=== PATIENT | male | born 1955 | race Caucasian/White ===

== ENCOUNTER 2021-04-04 02:20 | Emergency (ER) | payer OTHER, SELFPAY ==
[2021-04-04 02:21] VITALS: BP 196/117; PULSE 92; RESP 18; TEMP 36.8; O2SAT 96; BMI 30.1
--- NOTE | 2021-04-04 02:36 | EKG12_ITS ---
Test Reason : CP Blood Pressure : / mmHG Vent. Rate : 091 BPM Atrial Rate : 091 BPM P-R Int : 214 ms QRS Dur : 118 ms QT Int : 392 ms P-R-T Axes : 050 -39 028 degrees QTc Int : 482 ms Sinus rhythm with 1st degree A-V block Left axis deviation Prolonged QT Abnormal ECG Confirmed by MERCEDES VICTORIA, BERNABE ([id number]), photography editor MICHELLE SUN ([id number]) on 04/08/2021 8:30:17 AM Referred By: JOSE Confirmed By:DARLINE LONG MD
--- NOTE | 2021-04-04 02:37 | ED.VIS.CHEST ---
HPI History of Present Illness Chief Complaint: Chest Pain Informant: patient Narrative Narrative: Patient presents with complaint of sternal pain. He states this started while he was pushing and pulling on a brush hog trying to get attached to the tractor. This happened in late afternoon or early evening. This was likely for 5:00. It just has not gone away. It does not really radiate. He has no nausea, vomiting, shortness of breath, pleuritic pain. He has not been lightheaded or dizzy. He was not diaphoretic with this. However, he states he thinks he had some diaphoresis this morning when he got out of the shower but he had no other symptoms. He also notes that he just got his third Covid vaccine about 3 days ago and has been having myalgias and symptoms from that. He is not sure if this is part of it or different. He is also had the same sternal pains before. Normally they occur when he is working hard such as doing bench press or lifting. He even will swim 30 laps when he has the pain and it does not change it. This is a similar pain. He did have a heart catheterization but it is approaching 10 years ago. He was told he had diseases somewhere between about 25 and 40%. He has had symptoms like this in the past. He did have a trip to [place] a few weeks ago. No leg pain or swelling. No pleuritic component. No cough shortness of breath. No hemoptysis. No history of DVT or PE in him or family members. He is on Coumadin. Nothing really makes his symptoms specifically better or worse. He does not feel ill but he has this discomfort that is concerning. [facility] Home Medications atorvastatin 10 mg PO QHS 03/23/16 [History Last Taken Unknown] diltiazem HCl 120 mg PO DAILY 03/23/16 [History Last Taken Unknown] dofetilide [Tikosyn] 500 mcg PO BID 03/23/16 [History Last Taken Unknown] magnesium oxide 400 mg PO TID 03/23/16 [History Last Taken Unknown] potassium chloride 10 meq PO BID 03/23/16 [History Last Taken Unknown] warfarin [Coumadin ([facility])] 7.5 mg PO DAILY 03/23/16 [History Last Taken Unknown] empagliflozin [Jardiance] 10 mg PO DAILY 04/04/21 [History Last Taken Unknown] semaglutide [Rybelsus] 14 mg PO DAILY 04/04/21 [History Last Taken Unknown] Allergy/AdvReac Type Severity Reaction Status Date / Time No Known Allergies Allergy Verified 04/04/21 02:26 Surgical History H/O cardiac radiofrequency ablation H/O right heart catheterization Social History Smoking Status: Never smoker ROS ROS ED Constitutional Constitutional ED: Denies fever(s) or subjective ENT ENT ED: Denies rhinorrhea or sore throat Cardiovascular Cardiovascular: Reports chest pain and other Details: See history of present illness. Patient takes Tikosyn and he thinks this is controlled his atrial fibrillation quite well for many months. ; Denies palpitations Respiratory/Chest Respiratory/Chest: Denies cough, dyspnea or sputum Gastrointestinal Gastrointestinal: Denies abdominal pain, diarrhea, nausea or vomiting Musculoskeletal Musculoskeletal: Reports arthralgias, myalgias and other Details: He has had some other arthralgias and myalgias since his third Covid shot. However they are improving. ; Denies back pain or neck pain Integumentary Denies rash Neurologic Neurologic: Denies weakness Psychiatric Psychiatric: Denies anxiety Hematologic/Lymphatic Hematologic/Lymphatic: Reports easy bleeding and easy bruising Allergic/Immunologic Allergic/Immunologic ED: Denies urticaria EXAM Physical Exam Const Vital Signs: 04/04/21 02:21 04/04/21 02:47 04/04/21 03:21 Temperature 98.3 F Temperature Source Oral Pulse Rate 92 82 Respiratory Rate 18 15 Blood Pressure 196/117 H 156/99 H Blood Pressure Mean 143 118 Pulse Ox 96 97 Oxygen Delivery Method Room Air Room Air Room Air 04/04/21 03:22 04/04/21 03:59 Temperature Temperature Source Pulse Rate 81 Respiratory Rate 22 H Blood Pressure 156/99 H 145/98 H Blood Pressure Mean 118 Pulse Ox 96 Oxygen Delivery Method Positive well nourished and well developed General Appearance ED: well developed and NAD HEENT Reports moist mucous membranes normocephalic Eyes EOMs intact bilaterally General Eye ED: Negative for scleral icterus Neck no JVD Chest Wall inspection of chest normal Chest Narrative: Mild soreness right at the midsternum. Resp normal respiratory effort Resp Narrative: Lungs are clear. There is no pain with deep breaths. Effort and Inspection: Negative for respiratory distress Auscultation: Negative for rales, rhonchi or wheezes Cardio regular rate, regular rhythm and no murmurs Rate: other Other Details: Although he has history of atrial fibrillation, he is in a sinus rhythm at this time. GI normal to inspection, nondistended, normoactive bowel sounds, soft to palpation and non-tender Back/Spine no CVA tenderness Extremity normal to inspection General Extremety ED: Negative for edema, pulses abnormal or tenderness General Extremity: Negative for edema or pulses abnormal Neuro Sensorium / Orientation: awake and alert Psych mental status grossly normal Skin no rashes or lesions noted Heart Score History: Slightly/Non-Suspicious ECG: Normal Age: >45 - <65 years Risk Factors: >/= 3 Risk Factors or History of CAD Troponin: </= Normal Limit Score: 3 MDM MDM MDM Narrative Medical decision making narrative: Patient CBC shows no marked abnormalities. INR is therapeutic at 2.0. Glucose is mildly elevated at 181. Troponin is negative. Troponin is negative after about 10 hours of symptoms. He also now states that he had some of the symptoms yesterday. This might overlap with the myalgias he has been having. He states in years past he had had vasospastic angina and this does not feel like that angina. Change in medicines stopped that. He feels well. He is comfortable going home and following up with his private physician and his airplane engineer. He does have a low heart score. He is beyond 8 hours from symptoms. We discussed the option of a delta but he is really already passed that point. Lab Data Attestation: I reviewed the patient's lab results. Labs: Laboratory Results - last 24 hr 04/04/21 04/04/21 04/04/21 02:27 02:27 02:27 WBC 9.5 RBC 5.36 Hgb 16.9 H Hct 48.8 MCV 91.0 MCH 31.5 MCHC 34.6 RDW Std Deviation 41.4 RDW Coeff of Juli 12.6 Plt Count 171 MPV 9.2 Immature Gran % (Auto) 0.400 Neut % (Auto) 64.0 Lymph % (Auto) 18.8 L [place] % (Auto) 13.4 H Eos % (Auto) 3.0 Baso % (Auto) 0.4 Absolute Neuts (auto) 6.1 Absolute Lymphs (auto) 1.78 Nucleated RBC % 0 PT 22.3 H INR 2.0 Sodium 138 Potassium 3.6 Chloride 104 Carbon Dioxide 27.0 Anion Gap 7 BUN 21 H Creatinine 0.84 Estim Creat Clear Calc 100.40 Est GFR (MDRD) Af Amer 119 Est GFR (MDRD) Non-Af 98 BUN/Creatinine Ratio 25.1 H Glucose 181 H Calcium 9.4 Troponin I High Sens 35 Radiography Diagnostic Testing: Radiology Impression Chest X-Ray 04/04/21 02:41 IMPRESSION: Degenerative changes, as described above. No demonstrated acute cardiopulmonary process. Electronically Signed: Kristina Perez MD at 3:27 EDT Tel , Service support , EKG Initial EKG: Comments: KG done for chest pain read by me shows normal sinus rhythm with first-degree AV block. No ectopy. No acute ST elevation or depression consistent with infarct or ischemia. DE interval is long. QRS duration is borderline. QTc is just borderline at 482 ms. Complexes overall looks similar to 23 March 2016 but he is not in atrial fibrillation now. Discharge Plan Triage Chief Complaint: Chest Pain ED Provider: Davide Abbott Dx/Rx/DC Orders Clinical Impression: Chest pain Instructions: ED Chest Pain, Uncertain Cause Prescriptions: No Action atorvastatin 10 MG tablet 10 mg PO QHS RF: 0 dofetilide [Tikosyn] 500 MCG capsule 500 mcg PO BID RF: 0 potassium chloride 10 MEQ tablet 10 meq PO BID RF: 0 diltiazem HCl 120 MG capsule,extended release 12 hr 120 mg PO DAILY RF: 0 warfarin [Jantoven] 7.5 MG tablet 7.5 mg PO DAILY RF: 0 magnesium oxide 400 MG tablet 400 mg PO TID RF: 0 Jardiance 10 mg Tablet 10 mg PO DAILY RF: 0 Rybelsus 14 mg Tablet 14 mg PO DAILY RF: 0 Referrals: Arie Szymanski MD [STAFF PHYSICIAN] - As soon as possible Disposition Disposition: Home, Self Care Discharge Date/Time: 04/04/21 03:59
--- NOTE | 2021-04-04 02:41 | RAD_ITS ---
STUDY: X-RAY CHEST REASON FOR EXAM: Male, 65 years old. Chest pain TECHNIQUE: Single AP portable view of the chest. COMPARISON: March 23, 2016 FINDINGS: The lungs are clear and expanded. There is no demonstrated pleural abnormality. Normal size heart. Normal mediastinum and mona. Normal visualized pulmonary arteries. There is atherosclerotic tortuosity of the aortic arch and descending thoracic aorta. There are diffuse degenerative changes of the visualized thoracic spine. Normal visualized ribs, clavicles, and shoulders. There is no demonstrated abnormality of the visualized soft tissue structures of the upper abdomen. RAD/Chest 1 View (Portable) IMPRESSION: Degenerative changes, as described above. No demonstrated acute cardiopulmonary process. Electronically Signed: Kristina Perez MD at 3:27 EDT Tel , Service support ,
[2021-04-04 02:42] LABS: Absolute Lymphocyte Count 1.78 X10^3/uL (0.83-4.51); Absolute Neutrophil Count 6.1 X10^3/uL (2.0-7.7); Basophil# 0.04 X10^3/uL; Basophil% 0.4 % (0-1); Eosinophil# 0.28 X10^3/uL; Hematocrit 48.8 % (40-54); Hemoglobin 16.9 g/dL (13.0-16.5); Lymphocyte # 1.78 X10^3/ul (0.83-4.51); Lymphocyte % 18.8 % (19-41); Mean Corp Hgb Conc 34.6 g/dL (32-36); Mean Corpuscular Hgb 31.5 pg (27.0-32.0); Mean Platelet Vol. 9.2 fl (6.2-12.0); Monocyte# 1.27 X10^3/uL; Monocyte% 13.4 % (0-10); NRBC Flagged by Analyzer 0 % (0-5); Neutrophil # 6.08 X10^3/uL (2.7-7.7); Platelet Count 171 K/mm3 (150-450); RBC Distribution Width CV 12.6 % (11.6-14.6); RBC Distribution Width SD 41.4 fl (35.1-43.9); Red Blood Count 5.36 M/mm3 (4.6-6.2); White Blood Count 9.5 K/mm3 (4.4-11.0)
[2021-04-04 02:50] LABS: Prothrombin Time (Protime)PT. 22.3 SECONDS (11.7-14.9)
[2021-04-04 02:56] LABS: Anion Gap 7 (5-15); BUN 21 mg/dL (7-18); BUN/Creat Ratio 25.1 RATIO (10-20); Calcium,Total 9.4 mg/dL (8.5-10.1); Chloride 104 mmol/L (98-107); Creatinine, Serum 0.84 mg/dL (0.70-1.30); EST Glomerular Filtration Rate 98 mL/min (>60); Est Glom Filt Rate - Afr Amer 119 mL/min (>60); Glucose 181 mg/dL (74-106); Potassium 3.6 mmol/L (3.5-5.1); Sodium Level 138 mmol/L (136-145); Troponin-I HS 35 pg/mL (3.0-78.0)
[2021-04-04 03:21] VITALS: BP 156/99; PULSE 82; RESP 15; O2SAT 97
[2021-04-04 03:22] VITALS: BP 156/99
[2021-04-04 03:59] VITALS: BP 145/98; PULSE 81; RESP 22; O2SAT 96
== END 2021-04-04 03:59 | disposition home or self-care (01) ==
PROVIDERS: Emergency Provider Emergency Medicine
DX: R07.89 Other chest pain (principal); I44.0 Atrioventricular block, first degree; I48.91 Unspecified atrial fibrillation; Z79.01 Long term (current) use of anticoagulants
CPT/HCPCS: 71045; 80048; 84484; 85025; 85610; 93005; 99283; A4216

== ENCOUNTER 2022-09-09 08:53 | Day surgery (SDC) | payer MEDICARE, OTHER, SELFPAY ==
[2022-09-09] MEDS: Lactated Ringers 1,000 ML 15 ML IV ×3 (08:35→14:04)
[2022-09-09 09:15] VITALS: BP 171/89; PULSE 75; RESP 16; TEMP 37; O2SAT 99; BMI 29.0
[2022-09-09 09:15] LABS: INR Fingerstick 1.5; Prothrombin Time Fingerstick 17.8 SEC (11.7-14.9)
[2022-09-09 09:34] LABS: International Normalized Ratio 1.2; Prothrombin Time (Protime)PT. 15.1 SECONDS (11.7-14.9)
--- NOTE | 2022-09-09 09:47 | HP.PCM_ITS ---
History and Physical Date of Admission: 09/09/22 Visit Reasons:?Hernia Chief Complaint: hernia Is patient in pain?: No Allergies tape adhesive Allergy (Mild, Uncoded 08/19/22 08:50) Rash Medications atorvastatin 10 mg tablet 10 mg PO QHS 03/23/16 [History Confirmed 04/04/21] diltiazem HCl 120 mg capsule,extended release 12 hr 120 mg PO DAILY 03/23/16 [History Confirmed 04/04/21] dofetilide 500 mcg capsule (Tikosyn) 500 mcg PO BID 03/23/16 [History Confirmed 04/04/21] magnesium oxide 400 mg (241.3 mg magnesium) tablet 400 mg PO TID 03/23/16 [History Confirmed 04/04/21] potassium chloride 10 mEq tablet,extended release(part/cryst) 10 meq PO BID 03/23/16 [History Confirmed 04/04/21] warfarin 7.5 mg tablet (Jantoven) 7.5 mg PO DAILY 03/23/16 [History Confirmed 04/04/21] semaglutide 14 mg tablet (Rybelsus) 14 mg PO DAILY 04/04/21 [History Confirmed 04/04/21] empagliflozin 25 mg tablet (Jardiance) 25 mg PO DAILY 08/19/22 [History Confirmed 08/19/22] PFSH Surgical History? H/O cardiac radiofrequency ablation H/O right heart catheterization Social History? Smoking Status:? Never smoker HPI HPI HPI: 66-year-old gentleman who presents for surgical consultation regarding Past medical history includes a history of atrial fibrillation cardiac ablation with paroxysmal atrial fibrillation.? He is on Tikosyn and warfarin.? He is a type II diabetic.? Recent hemoglobin A1c is 8.4 Patient has a symptomatic right inguinal hernia.? It is currently reducible.? He has had a remote open left inguinal herniorrhaphy and some intermittent discomfort in that area.? He is also very much aware that he has a small umbilical hernia which she has to repetitively reduce but has never become incarcerated. His medical presentation is complicated by paroxysmal atrial fibrillation and chronic Coumadin anticoagulation.? Type 2 diabetes. Recent laboratory demonstrates an albumin of 5 and a total calcium of 9.7 with a total bilirubin of 1.1.? Glucose was 114 and BUN 16 and creatinine 0.81.? Potassium was 3.7.? Fasting lipid panel demonstrated total cholesterol of 142 with an HDL of 38 and a non-HDL of 104 and a VLDL of 22 and an LDL of 82.? Triglycerides were 109.? At that time PT was 21.6 with an INR of 2.2.? Magnesium 2.1.? PSA 3.29.? Hemoglobin A1c 8.4. White blood cell count 8.44 with a hemoglobin of 17 and hematocrit of 47.1 and a platelet count of 185,000 ROS General General: No weight change, appetite, fatigue, colon cancer, breast cancer or weakness HEENT HEENT: No difficulty swallowing, eye injury, eye surgery, swollen glands or hoarseness Endo Endocrine: Yes diabetes mellitus; No thyroid disease, thyroid cancer, Hair loss, heat intolerance or cold intolerance Musc Musculoskeletal: No back problems, arthritis, rheumatoid arthritis, gout or joint pain Cardio Cardiovascular: Yes heart disease and atrial fibrillation; No murmur, pacemaker, high blood pressure, heart attack, heart stent, palpitations, shortness of breat with exertion or chest pain Psych Psychiatric: No depression, anxiety or hearing voices Resp Respiratory: No shortness of breath, No sleep apnea, No cough, No COPD, No asthma, No emphysema and No wheezing Gastro Gastrointestinal: No abdominal pain, No nausea or vomiting, No diarrhea, No cons tipation, No blood in stool, No acid reflux, No hemorrhoids, No ulcers, No gallbladder problem and No black,tarry stools Kj Hematologic: Yes blood thinners, No blood disorders, No bleeding, No anemia and No blood clots Neuro Neurologic: No system reviewed and no additional complaints, except as documented, No as per HPI, No abnormal gait, No abnormal hearing, No abnormal movements, No abnormal speech, No behavioral changes, No burning sensations, No confusion, No convulsions, No disequilibrium, No dizziness, No localized weakness, No frequent falls, No headache(s), No lack of coordination, No loss of vision, No memory loss, Yes numbness, No other visual disturbances, No radicular pain, No restless legs, No sensory deficit, No syncope, Yes tingling, No tremor(s), No weakness and No other Exam Const General: cooperative, healthy appearing, comfortable and no acute distress Nutritional Appearance: average body habitus Orientation: alert, awake and oriented x3 [facility] Head: normal to inspection Eyes General: appearance normal, both eyes and all related structures Neck Neck: normal visual inspection Chest Chest palpation & inspection: normal inspection of the chest Resp Effort & Inspection: normal respiratory effort Auscultation: clear to auscultation bilaterally Cardio Rate: regular rate Rhythm: regular rhythm GI Palpation: soft and no hepatosplenomegaly Auscultation: normal bowel sounds Other: Testicles are descended bilaterally.? Well-healed transverse incision left groin.? Some very mild fibrofatty fullness of the proximal left inguinal cord but I cannot detect any fascial defect or distinct hernia. Obvious right inguinal hernia likely indirect and reducible.? Right testicle otherwise unremarkable. Musc Cervical Spine: normal cervical lordosis Skin General: no rashes or lesions noted Neuro General: patient alert, patient awake and patient oriented x3 Extrem General: no calf tenderness Psych Appearance: grossly normal Assessment and Plan Assessment and Plan (1) Inguinal hernia of right side without obstruction or gangrene: ?Status:?Acute (2) Umbilical hernia without obstruction or gangrene: ?Status:?Acute (3) Atrial fibrillation: ?Status:?Acute (4) Chronic anticoagulation: ?Status:?Acute ?Plan: Very pleasant 66-year-old gentleman.? He has asymptomatic although not incarcerated right inguinal hernia likely indirect.? In addition he has a small umbilical hernia.? On my clinical examination he has had evidence of a remote open left inguinal herniorrhaphy and although there is some fibrofatty fullness of the cord I cannot detect a recurrent hernia on the left. I do propose for him a laparoscopic right inguinal herniorrhaphy with mesh and anticipate an incision at the umbilicus with a subsequent repair of that defect possibly with a Ventralex mesh.? I described technique, benefit, risk, alternatives. He is on warfarin anticoagulation we will have him hold that 3 days preoperatively. He did share with me that a PSA level that was just obtained yesterday was higher than previous values.? He has verbally discussed this with urology who recommends a laboratory recheck.? The patient will pursue that and then contact us regarding that value.? I have explained to the patient that I would be somewhat hesitant to do the laparoscopic retroperitoneal dissection if there was a chance that he would need to have a prostate surgery in the near future. We do tentatively have him scheduled for surgery in approximately 8 days.? He has had an opportunity to ask and have questions answered.? We will proceed as noted pending his PSA results. I very much appreciate the kind opportunity of assisting with his surgical care. Da Becerra M.D., F.A.C.S His PSA levels have normalized on recheck. He presents now for umbilical herniorrhaphy and laparoscopic right inguinal herniorrhaphy with mesh. No changes in presentation. We will proceed as noted. Da Becerra M.D., F.A.C.S.
--- NOTE | 2022-09-09 09:49 | DCINST_ITS ---
Discharge Instructions Procedure General Surgery Diet Discharge Diet: Light diet - advance as tolerated (if you have questions about your diet instructions, please talk to you doctor.) Activity Discharge Activity: May Not Drive (for 3-5 days or while taking narcotic pain medicine.) May shower in (days): 1 Lifting Restrictions: 10 pounds Dressing / Incision Call your doctor if your incision/area has: Continuous Slow Oozing, Sudden Increased Bleeding, Increased Pain/ Swelling, Increased Redness and Foul Smelling Discharge Call your doctor if you observe: Fever of 101 or Higher Suture Line Care: Avoid Pulling/Pushing and Avoid Pinching/Bending Additional Dressing/Incision Instructions:: Change or remove dressing in 4 days. Leave steri-strips in place for 1 week. Follow Up Care Please Follow Up With: Da Becerra MD When: Call [phone] to make an appointment to be seen in about 10 days. Barring any bleeding issues to you may resume your warfarin tomorrow evening September 10, 2022 Test Results: Test results from this visit will be discussed in further detail at your follow- up appointment, if applicable. Discharge Plan Admission Primary Reason for Your Visit: Right inguinal hernia and umbilical hernia Attending Provider: Da Becerra Primary Care Provider: Tim Ramos Discharge Orders/Prescriptions Prescriptions: New hydrocodone-acetaminophen 5-325 mg tablet 1 tab PO Q6H PRN (Reason: pain) 3 Days Qty: 10 0RF Continued Jardiance 25 mg tablet 25 mg PO DAILY atorvastatin 10 MG tablet 10 mg PO QHS dofetilide [Tikosyn] 500 MCG capsule 500 mcg PO BID potassium chloride 10 MEQ tablet 10 meq PO BID Label Comments: -WED TID, REMAINING DAYS BID diltiazem HCl 120 MG capsule,extended release 12 hr 120 mg PO DAILY warfarin [Jantoven] 7.5 MG tablet 7.5 mg PO DAILY Label Comments: LAST DOSE 08/24 magnesium oxide 400 MG tablet 400 mg PO TID Rybelsus 14 mg Tablet 14 mg PO DAILY aspirin 81 mg Capsule 81 mg PO DAILY Referrals / Follow Up: Tim Ramos DO [Primary Care Provider] - Disposition Disposition (needs filled in before D/C Order can be placed): Home, Self Care
[2022-09-09] MEDS: Bupivacaine Mpf 0.5% 30 ML VIAL (10:11)
[2022-09-09 10:21] LABS: Bedside Glucose 185 mg/dL (74-106)
[2022-09-09] MEDS: Cefazolin 2 GM in 0.9% Normal Saline 100 ML IV (10:33)
--- NOTE | 2022-09-09 11:05 | HERN_PTH ---
PATIENT: ISIAH RM LOC: [facility] – [place] U#:[id number] AGE/SX: 66/M ROOM: RE09/09/[address]: Dr. Da Becerra MD : [id number] BED: DIS: 09/09/2022 SPEC #: [id number] RECD: 09/09/22 13:57 STATUS: KEVIN JUAREZ #: [id number] JAMMIE: 09/09/22 11:[address]: Da Becerra DEPT: SURGICAL PATHOLOGY RECD BY: Minda Metz ENTERED: 09/10/22 09:57 SP TYPE: Hernia OTHR DR: Dr. Tim Ramos, DO Tissues: HERNIA Procedures: Surgery Specimen Level II HEADER OPERATION: Lap inguinal hernia repair with mesh, umbilical hernia repair PRE-OP DIAGNOSIS: Inguinal hernia of right side, umbilical hernia TISSUE SUBMITTED: Umbilical hernia contents MICROSCOPIC DIAGNOSIS Umbilical hernia contents: A piece of fibroadipose tissue with reactive changes, clinically umbilical hernia contents. SJ:teena 09/11/2022 MICROSCOPIC DESCRIPTION Slides are reviewed. GROSS DESCRIPTION Received in fixative is one container labeled with the patient's name and designated umbilical hernia contents. The specimen consists of a piece of adiposes tissue measuring 1.5 x 1 x 0.5 cm. The specimen is bisected and submitted entirely in one cassette. / KENNETH:teena 09/10/2022 TC:5 [facility]: [id number]
[2022-09-09] MEDS: Lidocaine 1% (30 ml sdv) 30 ML Vial (11:52)
--- NOTE | 2022-09-09 12:00 | OP.PCM_ITS ---
Report of Operation Date of Procedure: 09/09/22 Pre-Operative Diagnosis: Symptomatic indirect right inguinal hernia Umbilical hernia Post-Operative Diagnosis: Same Surgery/Procedure Performed:: Laparoscopic right inguinal herniorrhaphy, Bard 3D max extra-large mesh lot number [id number], reference #[id number], expiry date 03/29/2027 Umbilical herniorrhaphy with Ventralex ST hernia patch, lot [id number], reference [id number], expiry date 02/27/2024 Description of Surgical Findings:: Timeout informed consent was obtained. 66-year-old gentleman was taken to the operating placed on the table underwent general endotracheal ovation esthesia. Ancef 2 g were given intravenously. The abdomen sterilely prepped and draped. 0.5% Marcaine was used as a local anesthetic. Throughout the procedure a total of 50 cc was used. An additional 1% lidocaine 20 cc was used. Skin sites were pretty anesthetized. A infraumbilical curvilinear incision was created sharp dissection carried down through the subcutaneous tissue hernia sac was identified this was sharply and bluntly dissected free holding sutures of 0 Vicryl placed 10 mm trocar inserted the abdomen was insufflated with CO2 to a pressure of 10 mmHg pressure. 10 Mcbride laparoscope inserted no concern trocar injuries. Under conversation 5 mm ports were placed in the right and left lower quadrants. Marcaine was used to laparoscopically do an ilioinguinal nerve block on the right. Inspection revealed adherent sigmoid colon to the anterior abdominal wall in the left lower quadrant obliterating view to the left groin. No attempt was made to transect those adhesions. A large indirect right inguinal hernia was identified. The peritoneum superior lateral to the internal ring was incised carried medially and then tediously the retroperitoneum was bluntly dissected free. Where needed hemostasis was obtained with Hem-o-teodoro clips were indicated. I got excellent dissection in view on the right. A Bard extra-large 3D max mesh was placed and it very nicely covered the direct alessandro rect and femoral area. I secured it with secure strap laterally superiorly and medially with excellent coverage. The peritoneum was then approximated to itself using secure strap and several Hem-o-teodoro clips. Complete obliteration of the mesh was achieved. The abdomen is now allowed to deflate of the CO2. A preperitoneal space was performed at the umbilicus. A 6.[address] mesh was placed it was unfurled nicely the tails were secured in place with interrupted 0 Nurolon the fascia was approximated with simple sutures of 0 Nurolon. I felt that I had good positioning reinflated the abdomen inspected the area mesh could not be visualized internally consistent with his preperitoneal positioning. The abdomen was again allowed to deflate of the CO2. Skin edges were approximated opted for Monocryl subdermal stitches. Steri-Strips Telfa OpSite dressings applied. Sponge and instrument and needle counts were reported to the surgeon to be correct. Specimens umbilical hernia sac contents. Drains none. Blood loss minimal. The patient was taken to the recovery room in satisfactory addition without apparent complication Surgeon: Da Becerra Type of Anesthesia: General and Local Anesthesiologist: Cresencio Virk
[2022-09-09 12:31] VITALS: BP 128/80; BP 171/89; PULSE 60; RESP 16; TEMP 36.3; O2SAT 93
[2022-09-09 12:45] VITALS: BP 123/77; BP 171/89; PULSE 54; RESP 16; O2SAT 97
[2022-09-09 12:55] LABS: Bedside Glucose 125 mg/dL (74-106)
[2022-09-09 13:00] VITALS: BP 127/80; BP 171/89; PULSE 54; RESP 16; TEMP 36.3; O2SAT 98
[2022-09-09] MEDS: Acetaminophen 325 MG Tablet 650 MG PO (13:44)
[2022-09-09 15:00] VITALS: BP 137/73; BP 171/89; PULSE 60; RESP 18; TEMP 36.6; O2SAT 96
== END 2022-09-09 15:16 | disposition home or self-care (01) ==
LOC: SDC 09:02 → AC 09:02
PROVIDERS: Anesthesiology; PCP Family Medicine; Referring Provider Surgery; Visit Provider Surgery
PROC: (CPT 49650; principal; 2022-09-09 10:45)
DX: K40.90 Unilateral inguinal hernia, without obstruction or gangrene, not specified as recurrent (principal); I48.91 Unspecified atrial fibrillation; E11.9 Type 2 diabetes mellitus without complications; K42.9 Umbilical hernia without obstruction or gangrene; Z79.01 Long term (current) use of anticoagulants; Z79.84 Long term (current) use of oral hypoglycemic drugs; I10 Essential (primary) hypertension
CPT/HCPCS: 49650; 49593; 00840; 36416; 82962; 85610; 88302; C1781; J7120; J2405